=== PATIENT | female | born 1980 | race Caucasian/White ===

== ENCOUNTER 2017-11-10 09:28 | Outpatient (CLI) | payer OTHER | END 2017-11-10 09:29 | disposition home or self-care (01) | LOC: BICMAMMO 09:28 | PROVIDERS: ATTEND Internal Medicine | DX: N63.20 Unspecified lump in the left breast, unspecified quadrant (principal); Z80.3 Family history of malignant neoplasm of breast | CPT/HCPCS: 77066; G0279 ==

== ENCOUNTER 2018-11-14 08:29 | Outpatient (CLI) | payer OTHER ==
--- NOTE | 2018-11-14 10:28 | MMO ---
Bilateral MAMMO Bilat Screen [facility]. CLINICAL HISTORY: Patient is 38 years old and is seen for screening. The patient has the following family history of breast cancer: maternal grandmother. The patient has no personal history of cancer. VIEWS: The views performed were: bilateral craniocaudal with tomosynthesis and bilateral mediolateral oblique with tomosynthesis. FILMS COMPARED: The present examination has been compared to a prior imaging study performed at [facility] on 11/10/2017. MAMMOGRAM FINDINGS: The breasts are heterogeneously dense, which could obscure a lesion on mammography. There is a mass seen in the left breast. Masses in the upper outer left breast are again seen and were shown to represent cysts on prior ultrasound. One of the masses is smaller in size. There are no suspicious masses, suspicious calcifications, or new areas of architectural distortion. IMPRESSION: THERE IS NO MAMMOGRAPHIC EVIDENCE OF MALIGNANCY. A ROUTINE FOLLOW-UP MAMMOGRAM IN 1 YEAR IS RECOMMENDED. 3BTHE RESULTS OF THIS EXAM WERE SENT TO THE PATIENT.0B ACR BI-RADS Category 2 - Benign finding MAMMOGRAPHY NOTE: 1. A negative mammogram report should not delay a biopsy if a dominant of clinically suspicious mass is present. 2. Approximately 10% to 15% of breast cancers are not detected by mammography. 3. Adenosis and dense breasts may obscure an underlying neoplasm.
== END 2018-11-14 08:30 | disposition home or self-care (01) ==
LOC: BICMAMMO 08:29
PROVIDERS: ATTEND Internal Medicine
DX: Z12.31 Encounter for screening mammogram for malignant neoplasm of breast (principal); Z80.3 Family history of malignant neoplasm of breast
CPT/HCPCS: 77063; 77067

== ENCOUNTER 2020-01-11 13:17 | Outpatient (CLI) | payer OTHER, BC ==
--- NOTE | 2020-01-11 14:48 | MMO ---
Bilateral MAMMO Bilat Diag [facility]. CLINICAL HISTORY: Patient is 39 years old and is seen for diagnostic exam. The patient has the following family history of breast cancer: maternal grandmother. The patient has no personal history of cancer. VIEWS: The views performed were: bilateral craniocaudal with tomosynthesis; bilateral mediolateral oblique with tomosynthesis; bilateral mediolateral with tomosynthesis; and bilateral exaggerated craniocaudal. FILMS COMPARED: The present examination has been compared to prior imaging studies performed at [facility] on 11/10/2017, 11/14/2018 and 01/11/2020. This study has been interpreted with the assistance of computer-aided detection. MAMMOGRAM FINDINGS: The breasts are heterogeneously dense, which could obscure a lesion on mammography. Multiple stable masses are noted in the upper outer left breast, consistent with stable cysts. A new mass is noted at the 12 o'clock position measuring 1.9cm, confirmed to be a benign cyst on mammography. No solid mass or abnormal shadowing noted. There are no suspicious masses, suspicious calcifications, or new areas of architectural distortion. IMPRESSION: THERE IS NO MAMMOGRAPHIC EVIDENCE OF MALIGNANCY. A ROUTINE FOLLOW-UP MAMMOGRAM IN 1 YEAR IS RECOMMENDED. THE RESULTS OF THIS EXAM WERE SENT TO THE PATIENT. ACR BI-RADS Category 2 - Benign finding MAMMOGRAPHY NOTE: 1. A negative mammogram report should not delay a biopsy if a dominant of clinically suspicious mass is present. 2. Approximately 10% to 15% of breast cancers are not detected by mammography. 3. Adenosis and dense breasts may obscure an underlying neoplasm. Reported by: CAROL JAVIER MD Electonically Signed: [id number]
--- NOTE | 2020-01-11 16:47 | ULT ---
FOCUSED ULTRASOUND OF THE LEFT BREAST: 01/11/20 COMPARISON: None. HISTORY: 39-year-old female with a history of cysts within the left breast. Diagnostic mammogram demonstrates a new oval lesion at the 12 o'clock position for which ultrasound was recommended. FINDINGS: At the 12 o'clock position of the left breast approximately 5 cm from the nipple there is a simple cy st measuring 1.9 x 1.0 x 2.0 cm, correlating in size and location with the mammographic abnormality. No solid mass or abnormal shadowing. IMPRESSION: BIRADS 2: Benign Finding(s) Routine annual screening mammography (for women over age 40).
== END 2020-01-11 13:18 | disposition home or self-care (01) ==
LOC: BICMAMMO 13:17
PROVIDERS: ATTEND Internal Medicine
DX: N63.0 Unspecified lump in unspecified breast (principal)
CPT/HCPCS: 77066; G0279

== ENCOUNTER 2021-03-20 | Outpatient (CLI) | payer OTHER | END 2021-03-20 08:47 | disposition home or self-care (01) | DX: Z12.31 Encounter for screening mammogram for malignant neoplasm of breast (principal) | CPT/HCPCS: 77063; 77067 ==

== ENCOUNTER 2021-07-17 09:52 | Outpatient (CLI) | payer OTHER | END 2021-07-17 09:53 | disposition home or self-care (01) | LOC: BICMAMMO 09:52 | PROVIDERS: ATTEND Internal Medicine | DX: N63.21 Unspecified lump in the left breast, upper outer quadrant (principal); N63.11 Unspecified lump in the right breast, upper outer quadrant | CPT/HCPCS: 77066; G0279 ==

== ENCOUNTER 2022-11-04 11:55 | Outpatient (CLI) | payer OTHER | END 2022-11-04 11:56 | disposition home or self-care (01) | LOC: BICRAD 11:55 | PROVIDERS: ATTEND Podiatrist | DX: M79.672 Pain in left foot (principal) ==

== ENCOUNTER 2023-04-08 13:22 | Emergency (ER) | payer OTHER ==
[2023-04-08] MEDS ORDERED: Aspirin Chewable 81 MG TAB ONE (14:21)
[2023-04-08] MEDS ORDERED: Meclizine HCl 25 MG TAB ONE (14:21)
== END 2023-04-08 15:40 | disposition home or self-care (01) ==
LOC: ERS 13:22
DX: R42 Dizziness and giddiness (principal)
CPT/HCPCS: 70551